=== PATIENT | male | born 1955 | race Caucasian/White ===

== ENCOUNTER 2018-07-19 06:52 | Day surgery (SDC) | payer OTHER ==
[2018-07-19 07:55] LABS: ADD MAN DIFF? NO
[2018-07-19] MEDS ORDERED: SOD CHLORIDE 0.45% 1,000 ML IV (08:00)
[2018-07-19 08:01] LABS: WHITE BLOOD COUNT 8.7 10^3/ul (4.8-10.8)
[2018-07-19 08:01] LABS: BASOPHILS % 0.2 % (0.0-2.0); EOSINOPHILS # 0.3 10^3/ul (0.0-0.5); EOSINOPHILS % 3.6 % (0.0-7.0); HEMATOCRIT 45.6 % (42.0-52.0); HEMOGLOBIN 14.4 g/dl (14.0-18.0); LYMPHOCYTES # 2.2 10^3/ul (0.8-2.9); LYMPHOCYTES % 24.7 % (15.0-51.0); MEAN CORPUSCULAR HEMOGLOBIN 25.5 pg (29.0-33.0); MEAN CORPUSCULAR HGB CONC 31.6 g/dl (32.0-37.0); MEAN CORPUSCULAR VOLUME 80.9 fl (82.0-101.0); MEAN PLATELET VOLUME 10.4 fl (7.4-10.4); MONOCYTE # 0.5 10^3/ul (0.3-0.9); MONOCYTES % 5.2 % (0.0-11.0); NEUTROPHIL # 5.8 10^3/ul (1.6-7.5); PLATELET COUNT 223 10^3/UL (140-415); RED BLOOD COUNT 5.64 10^6/ul (4.70-6.10); RED CELL DISTRIBUTION WIDTH 14.1 % (11.5-14.5)
[2018-07-19] MEDS: DIAZEPAM 5 MG TAB PO (08:12)
[2018-07-19] MEDS: FAMOTIDINE 20 MG TAB PO (08:12)
[2018-07-19] MEDS: DIPHENHYDRAMINE 50 MG CAP PO (08:12)
[2018-07-19 08:19] LABS: ALANINE AMINOTRANSFERASE 21 IU/L (13-69); ALBUMIN 4.1 g/dl (3.3-4.9); ALKALINE PHOSPHATASE 149 IU/L (42-121); ANION GAP 11 (5-13); ASPARTATE AMINO TRANSFERASE 22 IU/L (15-46); BILIRUBIN,INDIRECT 0.6 mg/dl (0-1.1); BILIRUBIN,TOTAL 0.6 mg/dl (0.2-1.3); CALCIUM 9.8 mg/dl (8.4-10.2); CARBON DIOXIDE 25 mmol/L (21-31); CHLORIDE 107 mmol/L (97-110); CHOL/HDL RATIO 4.7 RATIO; CHOLESTEROL 133 mg/dl (100-200); CREATININE 1.24 mg/dl (0.61-1.24); Estimated GFR 59 mL/min (>60); GLUCOSE 304 mg/dl (70-220); HDL CHOLESTEROL 28 mg/dl (30-78); LDL CHOLESTEROL,CALCULATED 70 mg/dl; POTASSIUM 4.3 mmol/L (3.5-5.1); SODIUM 143 mmol/L (135-144); TOTAL PROTEIN 8.2 g/dl (6.1-8.1); TRIGLYCERIDES 174 mg/dl (0-149)
[2018-07-19 08:21] LABS: INR 0.86; PROTIME 11.8 Sec (11.9-14.9); PT RATIO 0.9
[2018-07-19 08:22] LABS: PARTIAL THROMBOPLASTIN TIME 26.4 Sec (23.0-35.0)
[2018-07-19 08:24] LABS: BLOOD UREA NITROGEN 26 mg/dl (7-20)
[2018-07-19] MEDS ORDERED: HEPARIN 1000 UNITS/ML 10 ML INJ (08:31)
[2018-07-19] MEDS ORDERED: NITROGLYCERIN (IC) 100 MCG/ML INJ (08:31)
[2018-07-19] MEDS ORDERED: IODIXANOL LOCM 100 ML BTL (08:31)
[2018-07-19] MEDS ORDERED: VERAPAMIL 5 MG INJ (08:31)
[2018-07-19] MEDS ORDERED: LIDOCAINE 1% (MDV) 20 ML INJ (08:31)
[2018-07-19] MEDS ORDERED: FENTAnyl 50 MCG/ML VIAL (09:36)
[2018-07-19] MEDS ORDERED: MIDAZOLAM 1 MG/ML 2 ML INJ (09:36)
[2018-07-19] MEDS ORDERED: SOD CHLORIDE 0.9% 1,000 ML IV (10:08)
[2018-07-19] MEDS ORDERED: AL HYDROX/MG HYDROX/SIMETH 30 ML CUP PO (10:30)
[2018-07-19] MEDS ORDERED: ONDANSETRON 4 MG INJ IV (10:30)
[2018-07-19] MEDS ORDERED: morphine 2 MG INJ IV (10:30)
[2018-07-19] MEDS ORDERED: ACETAMINOPHEN 325 MG TAB PO (10:30)
[2018-07-19] MEDS ORDERED: HOLD all METFORMIN and METFORMIN CONTAINING medications for 48 hours post procedure. Chec XX (10:30)
== END 2018-07-19 13:00 | disposition home or self-care (01) ==
LOC: SDS 06:52
DX: R94.31 Abnormal electrocardiogram [ECG] [EKG] (principal); I10 Essential (primary) hypertension; E11.9 Type 2 diabetes mellitus without complications; I25.10 Atherosclerotic heart disease of native coronary artery without angina pectoris; R07.9 Chest pain, unspecified
CPT/HCPCS: 71045; 80053; 80061; 82962; 85025; 85610; 85730; 93005; 93458